=== PATIENT | male | born 1995 | race Caucasian/White ===

== ENCOUNTER 2022-12-11 04:33 | Day surgery (SDC) | payer OTHER ==
[2022-12-10 11:35] VITALS: BMI 24.0
[2022-12-11 13:16] VITALS: TEMP 97.7
[2022-12-11 13:46] VITALS: BP 106/60; PULSE 79; RESP 25
== END 2022-12-11 14:00 | disposition home or self-care (01) ==
LOC: JASU-ENDO 04:33
PROVIDERS: ATTEND Internal Medicine Gastroenterology
PROC: 0DB78ZX Excision of Stomach, Pylorus, Via Natural or Artificial Opening Endoscopic, Diagnostic (ICD-10-PCS; 2022-12-11)
PROC: 0DB68ZX Excision of Stomach, Via Natural or Artificial Opening Endoscopic, Diagnostic (ICD-10-PCS; 2022-12-11)
PROC: 0DB98ZX Excision of Duodenum, Via Natural or Artificial Opening Endoscopic, Diagnostic (ICD-10-PCS; principal; 2022-12-11 12:45)
DX: R10.13 Epigastric pain (principal)
CPT/HCPCS: 88305-TC; 88342-TC